=== PATIENT | male | born 1990 | race Two or more races ===

== ENCOUNTER 2023-04-21 20:15 | Emergency (ER) | payer MEDICAID, OTHER ==
[~2023-04-21] VITALS: Ht 188 cm; Wt 118.2 kg
[2023-04-21 20:20] VITALS: BP 156/93; RESP 16; O2SAT 98
[2023-04-21 20:45] LABS: Basophils # (auto) 0.1 10 ^3/uL (0-0.2); Basophils % (auto) 1.4 % (0.0-2.0); Eosinophils # (auto) 0.2 10 ^3/uL (0-0.8); Hemoglobin 15.8 g/dL (13.5-17.5); Lymphocytes # (auto) 3.7 10 ^3/uL (0.4-5.4); Lymphocytes % (auto) 46.8 % (10.0-50.0); Mean Corpuscular Hgb Conc. 33.7 g/dL (32.0-36.0); Monocytes # (auto) 0.6 10 ^3/uL (0-1.3); Monocytes % (auto) 7.6 % (0.0-12.0); Neutrophils # (auto) 3.3 10 ^3/uL (1.6-8.6); Neutrophils % (auto) 42.2 % (37.0-80.0); Nucleated Red Blood Cells % 0.2 %; Red Blood Cells 5.28 10^6/uL (4.5-5.90); Red Cell Distribution Width 13.4 % (11.8-14.3); White Blood Cell 7.9 10^3/uL (4.4-10.8)
[2023-04-21 21:00] LABS: INR 1.05 (0.9-1.15); Partial Thromboplastin Time 29.9 SEC (24.5-34.5)
[2023-04-21 21:22] VITALS: PULSE 79
[2023-04-21 21:44] LABS: Urine WBC None Seen /hpf (0 - 3)
[2023-04-21 21:57] LABS: Chloride 106 mmol/L (98-107); Potassium 3.5 mmol/L (3.5-5.1); Sodium 138 mmol/L (136-145)
[2023-04-21 21:59] LABS: Anion Gap 9 (5-15); Carbon Dioxide 23 mmol/L (20-30)
[2023-04-21 22:00] LABS: Calcium 9.3 mg/dL (8.7-10.4)
[2023-04-21 22:05] LABS: Alkaline Phosphatase 55 U/L (46-116); Blood Urea Nitrogen 8 mg/dL (9-23); Glucose 98 mg/dL (74-106); Magnesium 2.1 mg/dL (1.6-2.6)
[2023-04-21 22:06] LABS: Alanine Aminotransferase 60 U/L (7-40); Albumin 4.8 g/dL (3.2-4.8); Aspartate Aminotransferase 39 U/L (13-40)
[2023-04-21 22:07] LABS: Bilirubin, Total 0.5 mg/dL (0.2-1.0); Total Protein 7.3 g/dL (5.7-8.2)
[2023-04-21 22:09] LABS: Urine Bacteria NONE SEEN /hpf (None Seen); Urine Blood Negative /uL (Negative); Urine Clarity Clear (Clear); Urine Color Colorless (Yellow); Urine Protein, UAD Negative (Negative); Urine Specific Gravity 1.005 (1.001-1.035); Urine Urobilinogen Normal (Negative); Urine pH 6.5 (5.0-8.0)
== END 2023-04-22 00:08 | disposition left against medical advice (07) ==
LOC: ER 20:15
DX: R07.89 Other chest pain (principal); Z53.21 Procedure and treatment not carried out due to patient leaving prior to being seen by health care provider
CPT/HCPCS: 36415; 71045; 80053; 81001; 83735; 83880; 84484; 85025; 85610; 85730; 93005